=== PATIENT | male | born 2000 | race African-American/Black ===

== ENCOUNTER 2019-02-07 01:18 | Emergency (ER) | payer SELFPAY ==
[~2019-02-07] VITALS: Ht 172.7 cm; Wt 59.0 kg
--- NOTE | 2019-02-07 01:26 | NUR ---
Pt. BIB [facility] for acute alcohol intoxication, roomate called 911 as pt. was intoxicted and vomiting at his residence, pt. smells of alcohol and reports drinking, pt. has slurred speech and obeys simple commands w/ poor coordination, denies taking any other substances, bed in low position w/ guardrails up, monitoring from nurse station,
--- NOTE | 2019-02-07 01:27 | NUR ---
at bedside for MSE
[2019-02-07] MEDS ORDERED: ONDANSETRON 4 MG/2 ML VIAL IM ONE (01:30)
[2019-02-07] MEDS ORDERED: ONDANSETRON 4 MG/2 ML VIAL ONE (01:36)
--- NOTE | 2019-02-07 02:30 | NUR ---
Pt. resting in bed, bed in low position, guardrails up, monitoring from nurse station, NAD
--- NOTE | 2019-02-07 03:21 | NUR ---
Pt. given warm blankets for comfort, resting in bed, NAD
--- NOTE | 2019-02-07 04:16 | NUR ---
Pt. resting in bed, monitoring from nurse station, NAD
--- NOTE | 2019-02-07 04:51 | NUR ---
Patient discharged to home in stable conditon. Written and verbal after care instructions given. Patient verbalizes understanding of instructions. Pt. d/c per MD order, d/c papers signed, all belongings w/ pt., ID band removed, ambulated off unit w/ steady gait, NAD
== END 2019-02-07 05:06 | disposition home or self-care (01) ==
LOC: ER 05:05
DX: F10.129 Alcohol abuse with intoxication, unspecified (principal); Z91.013 Allergy to seafood; Y90.4 Blood alcohol level of 80-99 mg/100 ml
CPT/HCPCS: 36415; 96372; 99283; G0480; J2405; A4663